=== PATIENT | female | born 1970 | race Caucasian/White ===

== ENCOUNTER 2016-12-16 05:04 | Day surgery (SDC) | payer MEDICAID ==
[2016-12-14 11:21] LABS: ANION GAP 13.8 mmol/L (8-16); CALCIUM 9.4 mg/dL (8.5-10.1); CARBON DIOXIDE 25.2 mmol/L (21.0-32.0); CREATININE - SERUM 0.9 mg/dL (0.6-1.3)
[2016-12-14 11:26] LABS: BASOPHILS 0.4 % (0.0-2.0); EOSINOPHILS 2.7 % (0-7); HEMATOCRIT 38.7 % (36.0-48.0); HEMOGLOBIN 12.7 g/dL (12-16); IMMATURE GRANULOCYTES 0.2 % (0-5); LYMPHOCYTES 21.7 % (15-50); MCH 27.4 pg (26.0-34.0); MCHC 32.8 g/dL (31.0-37.0); MCV 83.4 fL (80.0-100.0); MEAN PLATELET VOLUME 10.8 fL (7.4-10.4); MONOCYTES 4.3 % (2-11); NEUTROPHILS 70.7 % (40-80); PLATELET COUNT 251 10x3/uL (130-400); RBC 4.64 10x6/uL (4.00-5.40); RDW 15.4 % (11.5-14.5); WBC 9.3 10x3/uL (4.8-10.8)
[~2016-12-16] VITALS: Ht 167.6 cm; Wt 155.1 kg
[~2016-12-16 05:04] MED LIST: LANTUS INSULIN10 ML SC; MINIPRESS 5 MG C5 MG PO; NOVOLOG100 U/M1 SC; RISPERDAL2 MG PO; SEROQUEL400 MG PO; ULTRAM50 MG PO
[2016-12-16 07:59] VITALS: BP 118/68; Ht 167.6 cm; Wt 155.1 kg
[2016-12-16 08:04] LABS: HCG URINE NEGATIVE (NEGATIVE)
--- NOTE | 2016-12-16 09:07 | HP ---
PATIENT: MONICA CASEY MEDICAL RECORD: [id number] ACCOUNT: [id number] [facility] ADMISSION DATE: 12/16/16 HISTORY AND PHYSICAL EXAMINATION HISTORY OF PRESENT ILLNESS: This patient is a 46-year-old 1, para 1 white female with severe menorrhagia. She has undergone evaluation by her local physician with negative, benign endometrial biopsy, normal Pap smear and ultrasound revealing a measurement of 11 cm x 7 cm. Review of systems is positive for erratic, heavy vaginal bleeding. MEDICAL PROBLEMS: Include arthritis, diabetes and hypertension. REVIEW OF SYSTEMS: Weight gain, back pain, joint pain, muscular cramps. PREVIOUS SURGERIES: Breast reduction. FAMILY HISTORY: Noncontributory. HABITS: Nonsmoker, no ethanol use. PHYSICAL EXAMINATION: VITAL SIGNS: Weight is 348 pounds, blood pressure 110/80. HEENT: Grossly unremarkable. LUNGS: Clear. HEART: Regular rate and rhythm. ABDOMEN: Morbidly obese. Unable to palpate abdominal organs or evaluate. PELVIC: Deferred for anesthesia. EXTREMITIES: No cyanosis, clubbing or edema. NEUROLOGIC: Grossly intact. IMPRESSION: Abnormal heavy vaginal bleeding, negative endometrial biopsy, ultrasound as described above. Normal Pap smear. PLAN: The patient desires endometrial ablation. She understands that the success rate with her enlarged uterus will be less than a normal-sized uterus. Discussed risks of procedure with the patient, anesthetic complications that can occur, infections, perforation of the uterus, injury to other organs. All questions were answered. TRANSINT:[id number] Voice Confirmation ID: [id number] DOCUMENT ID: [id number] CHAR INCOLE MD at 0907 CC: [id number] DICTATION DATE: 12/14/16 1626 OUTSOLE LEVELER: 12/14/16 1925 [facility] [address] [place] [address]
--- NOTE | 2016-12-16 10:43 | NUR ---
1040-RECEIVED PT FROM PACU SLEEPY. VSS PT WITHOUT ANY DISTRESS POX 96% ON 3L. DENIES ANY N/V AT THIS TIME. FAMILY AT BEDSIDE. NO BLEEDING OR DISCHARGE NOTED WILL CONTINUE TO MONITOR CALL LIGHT IN REACH
--- NOTE | 2016-12-16 13:02 | NUR ---
1215--PT VOIDS, IV DC'D. [place] 1249--DISCHARGE INSTRUCTIONS GIVEN, PT VERBALIZES UNDERSTANDING. PT OFF UNIT VIA WC. STAN [place]OD
--- NOTE | 2016-12-23 07:19 | OP ---
PATIENT NAME: MONICA CASEY MEDICAL RECORD: [id number] :70 LOCATION:D[facility] ADMISSION DATE: SURGEON: JOANNA NICOLE MD DATE OF OPERATION: 12/16/2016 PREOPERATIVE DIAGNOSIS: Menorrhagia. POSTOPERATIVE DIAGNOSIS: Menorrhagia. PROCEDURE: Hydrothermal endometrial ablation. SURGEON: Joanna Nicole MD. ANESTHESIA: General. FINDINGS: Cervix high in the vaginal vault, difficult to evaluate, large uterus, beyond 8-10 cm in length. ESTIMATED BLOOD LOSS: Minimal. COMPLICATIONS OF SURGERY: None. OPERATIVE NOTE: The patient was taken to the OR under adequate general anesthesia, prepped and draped in the usual manner for vaginal procedures. Evaluation of the vaginal vault reveals the cervix high in the vaginal vault requiring large and long speculum to visualize. Cervix with progressively dilated to accept a #9 cervical dilator and the hysteroscopic evaluation was begun with placement of the hydrothermal device and hysteroscope through the vagina to the top superior portion of the cervix. Upon adequate visualization, the hydrothermal endometrial ablation was begun and carried out for 10 full minutes. At the end of the 10-minute burn and cool down, all instruments were removed, bleeding was minimal and the patient went to the recovery area in good condition. TRANSINT:[id number] Voice Confirmation ID: [id number] DOCUMENT ID: [id number] JOANNA NICOLE MD at 0719 CC: [id number] DICTATION DATE: 12/16/16 1016 STOCK LIFTER: 12/16/16 1301 [facility] 12/16/[address] [address]
== END 2016-12-16 12:45 | disposition home or self-care (01) ==
LOC: D.OPS 05:04 → D.PAN 09:00 → D.OPS 10:00 → D.PAN 10:00 → D.OPS 12:45
PROVIDERS: Obstetrics & Gynecology
DX: N92.0 Excessive and frequent menstruation with regular cycle (principal); N85.2 Hypertrophy of uterus

== ENCOUNTER 2021-04-01 10:44 | Day surgery (SDC) | payer MEDICAID ==
[~2021-04-01] VITALS: Ht 167.6 cm; Wt 136.6 kg
--- NOTE | ~2021-04-01 | HEMODYNAMI ---
PATIENT:MONICA CASEY MEDICAL RECORD: [id number] : 70 LOCATION:[facility] ADMISSION DATE: 04/01/21 Generatedon:113:24 Patient name: MONICA CASEY Patient #: [id number] SSN: : 1970 Date of study: 04/01/2021 Page: Of Hemodynamic Procedure Report Patient Data Patient Demographics Procedure consent was obtained First Name: MONICA Gender: Female Last Name: JACINTO : 1970 Middle Initial: DANIA Age: 50 year(s) Patient #: [id number] Race: Unknown Additional ID: [id number] Contact details Address: [address] State: [place] City: [place] Zip code: [address] Admission Admission Data Admission Date: 04/01/2021 Admission Time: 10:44 Admit Source: Other Procedure Procedure Types Cath Procedure Diagnostic Procedure LHC LH w/Coronaries Sedation Charges Moderate Sedation 10-24 minutes Procedure Description Procedure Date Procedure Date: 04/01/2021 Procedure Start Time: 13:12 Procedure End Time: 13:21 Procedure Staff Name Function Timothy Castellanos MD Performing Physician Alex Flores RT Monitor Devonte Leslie RN Nurse Alee Healy RT Scrub Procedure Data Cath Procedure Fluoroscopy Diagnostic fluoroscopy Total fluoroscopy Time: 3 time: 3 min min Diagnostic fluoroscopy Total fluoroscopy dose: 471 dose: 471 mGy mGy Contrast Material Contrast Material Type Amount (ml) Isovue 370 59 Entry Location Entry Primary Successful Side Size Upsize Upsize Entry Closure Hoang ccessful Closure Location (Fr) 1 (Fr) 2 (Fr) Remarks Device Remarks Radial Right 6 Fr Mechanical artery Short Compression Diagnostic catheters Device Type Used For End Catheter Placement DIAGNOSTIC [place] 110cm 5 LV Angiography Fr catheter (998373) DIAGNOSTIC JL 3.5 5Fr Left Coronary catheter ([id number]) Angiography Procedure Complications No complications Procedure Medications Medication Administration Route Dosage Versed I.V. 1 mg Fentanyl I.V. 50 mcg 0.9% NaCl I.V. 100 ml/hr Oxygen etCO2 Nasal cannula 2 l/min Heparin Flush Bag added to field 2 bags (1000units/500ml NS) Lidocaine 2% added to field 20 Radial Cocktail added to field 1 syringe (Verapamil 2mg/Nitro 400mcg/Heparin 1500units) Versed I.V. 1 mg Fentanyl I.V. 50 mcg Hemodynamics Rest Heart Rate: 67 (bpm) Pressure Samples Time Site Value (mmHg) Purpose Heart Use Rate(bpm) 13:14 LV 74/20,21 EDP 97 13:14 AO 96/29(59) Pullback 86 Gradients Valve Time Site Site 2 Mean SEP/DFP Peak To Heart Use 1 (mmHg) (sec/min) Peak Rate (mmHg) (bpm) Aortic 13:14 LV AO 86 96/29(59) Snapshots Pre Cath Intra NCS Post Cath Vital Signs Time Heart Resp SPO2 etCO2 NIBP (mmHg) Rhythm Pain Sedation Rate (ipm) (%) (mmHg) Status Level (bpm) 12:56:14 65 32 98 0 127/77(91) NSR 0 (11) 10(A) , No pain 13:00:42 70 24 98 0 129/74(97) NSR 0 (11) 10(A) , No pain 13:05:13 68 2 98 21.8 125/75(92) NSR 0 (11) 10(A) , No pain 13:09:41 66 20 96 23.3 126/74(95) NSR 0 (11) 10(A) , No pain 13:14:07 71 21 94 21 106/64(101) NSR 0 (11) 10(A) , No pain 13:18:28 75 18 94 22.5 116/73(88) NSR 0 (11) 9(A) , No pain Medications Time Medication Route Dose Verified Delivered Reason Notes E ffectiveness by by 13:09:03 Radial Cocktail added 1 Timothy Aguirre used for (Verapamil to syringe [facility] procedure 2mg/Nitro field MD LOPEZ 400mcg/Heparin 1500units) 13:09:24 0.9% NaCl I.V. 100 Timothy Whitney used for ml/hr [facility] hotel assistant manager 13:09:33 Oxygen etCO2 2 l/min Timothy Whitney used for Nasal [facility] hotel assistant manager cannula 13:09:45 Heparin Flush added 2 bags Timothy Aguirre used for Bag to [facility] procedure (1000units/500ml field MD LOPEZ NS) 13:09:54 Lidocaine 2% added 20ml Timothy Aguirre for local to vial [facility] anesthetic field MD LOPEZ 13:12:36 Versed I.V. 1 mg Timothy Devonte for [facility] RN sedation 13:12:43 Fentanyl I.V. 50 mcg Timothy Mckeony for [facility] RN sedation 13:14:47 Versed I.V. 1 mg Timothy Whitney for [facility] Leslie RN sedation 13:14:50 Fentanyl I.V. 50 mcg Timothy Mckeony for [facility] RN sedation Procedure Log Time Note 12:50:17 Admit Source: Other 12:50:37 Procedure Status Elective Heart Cath (OP). 12:50:39 Devonte Leslie RN sent for patient. Start room use. 12:50:40 Time tracking: Regular hours (M-F 7:00 - 5:00) 12:50:44 Plan of Care:Hemodynamics will remain stable., Cardiac rhythm will remain stable., Comfort level will be maintained., Respiratory function will remain adequate., Patient/ family verbilizes understanding of procedure., Procedure tolerated without complication., Recovers from procedure without complications.. 12:50:49 Patient received from Pre/Post Procedure Room to CCL 1 Alert and oriented. Tansferred to table in Supine position. 12:50:51 Warm blankets applied, and chandra hugger turned on for patient comfort. 12:50:52 Signed procedure consent form obtained from patient. 12:50:53 Correct patient and procedure confirmed by team. 12:50:54 ECG and BP/O2 sat monitors applied to patient. 12:50:54 Vital chart was started 12:50:56 Baseline sample Acquired. 12:58:03 Baseline sample Acquired. 12:58:07 Rhythm: sinus rhythm 12:58:08 Full Disclosure recording started 12:58:13 H&P Date Dictated: 04/01/2021 H&P Addendum completed by physician on day of procedure. (MUST COMPLETE FOR ALL OUTPATIENTS). 12:58:14 Pre-procedure instructions explained to patient. 12:58:14 Pre-op teaching completed and patient verbalized understanding. 12:58:16 Family in waiting room. 12:58:19 Patient NPO since Midnight. 12:58:21 Is the patient allergic to Iodine/contrast media? No. 12:58:26 Is patient on blood thinner?No 13:08:27 Patient diabetic? No. 13:08:36 ----Pre-sedation anethsthesia assessment.---- 13:08:39 Previous problem with sedation/anesthesia? No ? 13:08:41 Snore? Yes 13:08:43 Sleep apnea? Yes 13:08:44 Deviated septum? No 13:08:46 Opens mouth fully? Yes 13:08:47 Sticks out tongue? No 13:08:49 Airway obstruction? No ? 13:09:03 Radial Cocktail (Verapamil 2mg/Nitro 400mcg/Heparin 1500units) 1 syringe added to field was administered by Timothy Castellanos MD; used for procedure; Verbal order read back and verified. 13:09:24 0.9% NaCl 100 ml/hr I.V. was administered by Devonte Leslie RN; used for procedure; Verbal order read back and verified. 13:09:33 Oxygen 2 l/min etCO2 Nasal cannula was administered by Devonte Leslie RN; used for procedure; Verbal order read back and verified. 13:09:44 Dentures? No ? 13:09:45 Heparin Flush Bag (1000units/500ml NS) 2 bags added to field was administered by Timothy Castellanos MD; used for procedure; Verbal order read back and verified. 13:09:49 Pre procedure: right dorsailis pedis pulse 2+ Normal; easily identifiable; not easily obliterated 13:09:54 Lidocaine 2% 20ml vial added to field was administered by Timothy Castellanos MD; for local anesthetic; Verbal order read back and verified. 13:09:55 Modified Alcides's test Ulnar < 7 seconds 13:09:59 Patient pain scale 0/10 ?. 13:10:08 IV patent on arrival in left antecubital with 0.9% NaCl at [facility]. 13:10:11 Lab results completed and on chart. 13:10:17 Risk of Mortality: 0.1 13:10:21 Risk of blood transfusion: 1.4 13:10:23 Risk of BOBY: 1 13:10:28 Right Radial & Right Groin area was prepped with chlora-prep and draped in sterile fashion 13:10:32 Alarms reviewed by R. N. 13:10:32 Sharps counted by scrub and verified by R.N. 13:10:34 Physician arrived 13:10:35 --------ALL STOP TIME OUT------ 13:10:38 Final Timeout: patient, procedure, and site verified with staff and physician. All members of the team are in agreement. 13:10:40 Right Radial & Right Groin site verified by team. 13:10:45 Fire Safety Assessment: A--An alcohol-based skin anteseptic being used preoperatively., C--Open oxygen or nitrous oxide is being used., D--An ESU, laser, or fiber-optic light is being used. 13:10:48 Physical assessment completed. ASA score P 2 - A patient with mild systemic disease as per Timothy Castellanos MD. 13:10:57 2) 60-89 Mildly reduced kidney function, and other findings (as for stage 1) point to kidney disease. 13:11:00 Maximum allowable contrast dose (3.7 X eGFR X 0.75)222 ml. 13:11:04 Sedation plan: IV Moderate Sedation Medication:Versed, Fentanyl 13:11:09 Use device set Radial Dx or PCI 13:11:10 ACIST Syringe (89972) opened to sterile field. 13:11:11 Medline Cath Pack ([id number]) opened to sterile field. 13:11:11 Bag Decanter () opened to sterile field. 13:11:12 ACIST Hand Control (96724) opened to sterile field. 13:11:12 ACIST Manifold (17409) opened to sterile field. 13:11:12 Tegaderm 4 x 4 (1626W) opened to sterile field. 13:11:13 MBrace Wrist Support (315043940) opened to sterile field. 13:11:14 NEEDLE Cook 21G 4cm Radial (I16366) opened to sterile field. 13:11:16 EMERALD Guide Wire (572-139) opened to sterile field. 13:11:17 SHEATH 6FR RAIN (4120871) opened to sterile field. 13:11:56 Zero performed for pressure channel P1 13:12:05 Procedure started. 13:12:36 Versed 1 mg I.V. was administered by Devonte Anuj RN; for sedation; Verbal order read back and verified. 13:12:43 Fentanyl 50 mcg I.V. was administered by Devonte Leslie RN; for sedation; Verbal order read back and verified. 13:12:51 Local anesthetic to right radial artery with Lidocaine 2% by Timothy Castellanos MD.INITIAL ACCESS ONLY 13:12:59 A 6 Fr Short sheath was inserted into the Right Radial artery 13:13:40 A DIAGNOSTIC [place] 110cm 5 Fr catheter (591696) was advanced over the wire and used for LV Angiography. 13:13:49 LV angiography performed. 13:13:52 LV gram done using HICKEY 13:13:53 LV hemodynamics recorded. 13:13:56 Injector settings: Ml/sec: 5, Volume: 15, 13:14:47 Versed 1 mg I.V. was administered by Devonte Leslie RN; for sedation; Verbal order read back and verified. 13:14:50 Fentanyl 50 mcg I.V. was administered by Devonte Leslie RN; for sedation; Verbal order read back and verified. 13:14:51 EF : 55 % 13:16:13 RCA angiography performed. 13:16:42 Catheter exchanged over wire. 13:16:53 A DIAGNOSTIC JL 3.5 5Fr catheter ([id number]) was advanced over the wire and used for Left Coronary Angiography. 13:17:00 LCA angiography performed. 13:17:05 Catheter exchanged over wire. 13:19:29 Sheath removed intact; hemostasis achieved with Mechanical Compression to the Right Radial artery. 13:19:33 Procedure ended.(Physican Out) 13:19:43 Fluoroscopy time 03.00 minutes. 13:19:50 Fluoroscopy dose: 471 mGy 13:19:50 Flurop Dose total: 471 13:20:05 Dose Area Product 40048 mGy/cm. 13:20:26 Contrast amount:Isovue 370 59ml. 13:20:29 Maximum allowable dose exceeded? No. 13:20:29 Sharps counted by scrub and verified by R.N. 13:20:32 [place] band inflated with 10cc of air. 13:20:33 Insertion/operative site no bleeding no hematoma. 13:20:39 Post right radial artery:stable 13:20:40 Post Procedure Pulses reassessed and unchanged 13:20:45 Post procedure: right radial pulse 1+ Palpable, but thready & weak; easily obliterated. 13:20:49 Post procedure rhythm: unchanged. 13:20:50 Post procedure instruction explained to patient.Patient verbalizes understanding. 13:20:52 Procedure and supply charges have been captured, reviewed, submitted and are correct. 13:20:59 Procedure type changed to Cath procedure, Diagnostic procedure, LHC, LHC w/Coronaries, Sedation Charges, Moderate Sedation 10-24 minutes 13:21:20 ZEPHYR REGULAR TR BAND (551207) opened to sterile field. 13:21:40 Procedure Complication : No complications 13:21:44 Vital chart was stopped 13:21:46 [facility] Findings: MVD- MD will discuss options w/ pt 13:21:50 Operative report dictated upon procedure completion. 13:21:50 See physician's report for complete and final results. 13:21:51 Report given to Pre/Post Procedure Room. 13:21:55 Patient transfered to Pre/Post Procedure Room with Stretcher. 13:21:57 Procedure ended. 13:21:57 Full Disclosure recording stopped 13:22:00 End room use (Document Last) 13:22:54 End room use (Document Last) 13:23:21 End room use (Document Last) Device Usage Item Name Manufacture Quantity Catalog Hospital Part Current Minima l Lot# / Number Charge Number Stock Stock Serial# Code ACIST Acist 1 28981 304026 292206 526878 20 Syringe Medical (33675) Systems Inc Medline Medline 1 [id number] 366364 40007 257769 5 Cath Pack ([id number]) Bag Microtek 1 521923 88197 989927 5 Decanter Medical Inc. () ACIST Hand Acist 1 47918 044585 516425 782464 5 Control Medical (72360) Systems Inc ACIST Acist 1 26513 646511 315298 938222 5 Manifold Medical (56279) Systems Inc Tegaderm 4 3M 1 1626W 303117 236517 571720 5 x 4 (1626W) MBrace Advanced 1 140-0250-00 269255 48874 628839 5 Wrist Vascular Support Dynamics (565010603) NEEDLE Syntonic Wireless Cook Medical 1 L17056 479258 122251 814166 5 21G 4cm Radial (D93711) EMERALD Cardinal 1 502-455 694073 769016 349641 5 Guide Wire Health (502455) SHEATH 6FR Cardinal 1 9498043 838798 4978302 489897 5 RAIN [facility] (1858277) DIAGNOSTIC Terumo 1 40-7003 232711 039296 476736 5 [place] 110cm 5 Fr catheter (903731) DIAGNOSTIC Cardinal 1 [id number] 589069 859345 833427 5 JL 3.5 5Fr Health catheter (700329I) ZEPHYR Cardinal 1 186682 334984 8370770 810042 5 REGULAR TR Health BAND (035906) Signature Audit [place] Stage Time Signature Unsigned Intra-Procedure 04/01/2021 Alex Flores RT(R) 1:22:54 PM Intra-Procedure 04/01/2021 Devonte Leslie RN 1:23:21 PM Intra-Procedure 04/01/2021 Timothy Sneed 1:24:05 PM Maurizio LOPEZ [address] [place] [address]
[2021-04-01] MEDS ORDERED: HCTZ25 MG PO (11:11)
[2021-04-01] MEDS ORDERED: SEROQUEL400 MG PO (11:12)
[2021-04-01] MEDS ORDERED: KLONOPIN1 MG PO (11:12)
[2021-04-01] MEDS ORDERED: LEVEMIR FL100 UNIT/1 SC (11:16)
[2021-04-01] MEDS ORDERED: LEVSIN/ANASP0.125 MG PO (11:16)
[2021-04-01] MEDS ORDERED: LIPITOR20 MG PO (11:17)
[2021-04-01] MEDS ORDERED: KEPPRA250 MG PO (11:17)
[2021-04-01] MEDS ORDERED: SYNTHROID75 MCG PO (11:18)
[2021-04-01 11:23] VITALS: BP 123/80; Ht 167.6 cm; Wt 136.6 kg
[2021-04-01 11:38] LABS: EOSINOPHILS 2.3 % (0-7); HEMATOCRIT 37.7 % (36.0-48.0); HEMOGLOBIN 12.7 g/dL (12-16); LYMPHOCYTES 26.7 % (15-50); MCH 29.1 pg (26.0-34.0); MCHC 33.8 g/dL (31.0-37.0); MEAN PLATELET VOLUME 8.5 fL (7.4-10.4); MONOCYTES 3.7 % (2-11); NEUTROPHILS 66.3 % (40-80); PLATELET COUNT 233 10x3/uL (130-400); RBC 4.38 10x6/uL (4.00-5.40); RDW 13.9 % (11.5-14.5); WBC 9.9 10x3/uL (4.8-10.8)
[2021-04-01 11:50] LABS: ALT (SGPT) 21 U/L (10-68); CALC OSMOLALITY 278 mosm/kg (275-300); CALCIUM 8.8 mg/dL (8.5-10.1); CHLORIDE - SERUM 105 mmol/L (98-107); CHOLESTEROL, TOTAL 180 mg/dL (0-200); CREATININE - SERUM 0.8 mg/dL (0.6-1.3); GLUCOSE 103 mg/dL (74-106); HDL CHOLESTEROL 61 mg/dL (32-96); LDL CHOLESTEROL 105 mg/dL (0-100); LDL-HDL RATIO 1.7 ratio (1.5-3.5); POTASSIUM - SERUM 3.4 mmol/L (3.5-5.1); SODIUM 140 mmol/L (136-145); TRIGLYCERIDE 74 mg/dL (30-200); UREA NITROGEN 13 mg/dL (7-18); eGFR NON AFRICAN AMERICAN 80 mL/min (90-120)
--- NOTE | 2021-04-01 13:37 | NUR ---
PT REC'D TO CATH RECOVERY ROOM 8 VIA STRETCHER. MONITORS ESTAB. R WRIST Z BAND IN PLACE - SEE RFID STRATEGIST FLOWSHEETS. ALARMS ON AND C/L IN REACH.
--- NOTE | 2021-04-01 13:50 | NUR ---
R WRIST Z BAND SITE C/D/I, NO S/S BLEEDING OR HEMATOMA. R ARM/HAND WARM WITH PALP PULSES AND BRISK CAP REFILL. PT RESTING QUIETLY, VSS. ALARMS ON AND C/L IN REACH.
--- NOTE | 2021-04-01 14:10 | NUR ---
HOB ELEVATED. GIVEN TEA AND SANDWICH TRAY. PT DENIES PAIN. VSS. R WRIST Z BAND SITE C/D/I, NO S/S BLEEDING OR HEMATOMA. ALARMS ON AND C/L IN REACH.
--- NOTE | 2021-04-01 14:35 | NUR ---
5CC AIR REMOVED FROM Z BAND, NO S/S BLEEDING OR HEMATOMA. PULSES PALP. PT TOLERATING DIET. VSS. ALARMS ON AND C/L IN REACH.
--- NOTE | 2021-04-01 14:50 | NUR ---
ALL AIR REMOVED FROM Z BAND, NO S/S BLEEDING OR HEMATOMA. PULSES PALP. R ARM/HAND WARM WITH PALP PULSES. VSS. C/L IN REACH.
--- NOTE | 2021-04-01 15:10 | NUR ---
ALL DISCHARGE INSTRUCTIONS REVIEWED WITH PT, INCLUDING RESTRICTIONS, MEDS AND F/U APPT - PT VERBALIZES UNDERSTANDING. R WRIST SITE C/D/I, NO S/S BLEEDING OR HEMATOMA. Z BAND OFF, DSG APPLIED.
--- NOTE | 2021-04-01 15:14 | NUR ---
PIV D/C'D INTACT, DSG APPLIED. PT ALLOWED UP TO GET DRESSED AND GO TO BR INDEPENDENTLY.
--- NOTE | 2021-04-01 15:25 | NUR ---
R Z BAND SITE C/D/I, ARM BOARD IN PLACE. PT D/C'D VIA WC TO PRIVATE VEHICLE WITH ALL PAPERWORK AND BELONGINGS.
--- NOTE | 2021-04-03 08:29 | OP ---
PATIENT NAME: MONICA CASEY MEDICAL RECORD: [id number] :70 LOCATION:[facility] ADMISSION DATE: SURGEON: APOLONIA LACEY MD DATE OF OPERATION: 04/01/2021 PROCEDURE PERFORMED: Left heart catheterization, selective coronary angiography, right radial approach. CATHETERS: Radial sheath and tiger catheter. The procedure was well tolerated. The patient returned to the matos, sheath removed. ExoSeal device was placed. FINDINGS: Left ventriculography in 30-degree HICKEY view: Normal wall motion, normal systolic function. CORONARY ANATOMY: LEFT MAIN: Left main is free of disease. LAD: Free of disease in the diagonal system. CIRCUMFLEX: Free of disease in the marginal system. RIGHT CORONARY ARTERY: Dominant artery, gives rise to PDA, free of disease. IMPRESSION: Normal LV systolic function. Normal coronary anatomy. TRANSINT:[id number] Voice Confirmation ID: [id number] DOCUMENT ID: [id number] APOLONIA LACEY MD at 0829 CC: [id number] DICTATION DATE: 04/01/21 1336 TALENT ENGINEER: 04/01/21 1904 [facility] 04/01/21 [facility] [address] [place] [id number]
== END 2021-04-01 15:25 | disposition home or self-care (01) ==
LOC: D.CATH 10:44
PROVIDERS: ATTEND Internal Medicine Interventional Cardiology
DX: R07.9 Chest pain, unspecified (principal); I20.9 Angina pectoris, unspecified; R06.02 Shortness of breath; E11.9 Type 2 diabetes mellitus without complications; I10 Essential (primary) hypertension; E78.5 Hyperlipidemia, unspecified; R01.1 Cardiac murmur, unspecified